=== PATIENT | male | born 1985 | race Caucasian/White ===

== ENCOUNTER 2019-12-08 23:51 | Emergency (ER) | payer BC, OTHER ==
[2019-12-09] MEDS ORDERED: morphine CARPU-JECT 4 MG/1 ML DISP.SYRIN IVPUSH ONE (00:01)
[2019-12-09] MEDS ORDERED: KETOROLAC TROMETHAMINE 30 MG/1 ML VIAL IVPUSH ONE (00:01)
[2019-12-09] MEDS ORDERED: SODIUM CHLORIDE 1,000 ML IV ONE (00:01)
--- NOTE | 2019-12-09 00:02 | PDOC ---
History of Present Illness - General Chief Complaint: Pain, Acute Stated Complaint: ABDOMINAL PAIN SHOOTING INTO TESTICLES Time Seen by Provider: 12/08/19 23:54 History Source: Patient Exam Limitations: No Limitations - History of Present Illness Initial Comments: 12/08/19 23:58 This is a 34-year-old male who comes in with acute onset of right flank pain radiating to his groin. Patient denies history of similar pain in the past. Patient denies history of kidney stones in the past past patient denies family history of kidney stones. Patient says pain is associated with some nausea but no vomiting. Patient denies fevers or chills. Allergies: as per nursing notes Past Medical History: none Social history: Lives with family. No smoking. No alcohol. No illicit drugs. Surgical history: None General: No fevers or chills, no weakness, no weight loss HEENT: No change in vision. No sore throat,. No ear pain CardioVascular: no chest discomfort. No shortness of breath Respiratory:No cough, or wheezing. Gastrointestinal: + nausea, no vomiting, diarrhea or constipation, No rectal bleeding Genitourinary: No dysuria, hematuria, or frequency Musculoskeletal: No joint or muscle pain or swelling : Right flank pain radiating to right groin Neurologic: No headache, vertigo, dizziness or loss of consciousness Psychiatric: nor depression Skin: No rashes or easy bruising Endocrine: no increased thirst or abnormal weight change Allergic: no skin or latex allergy All other systems reviewed and normal Exam: General: Well-nourished well-developed individual, no acute distress HEENT: Throat: Normal, tonsils normal, no erythema or exudate Neck: Supple, no meningeal signs, no lymphadenopathy Eyes::Pupils equal reactive and round, extraocular motion intact Chest: Nontender to palpation Cardiac: S1-S2 normal, regular rate and rhythm, no murmurs rubs or gallops Respiratory: Lungs clear to auscultation bilateral Abdomen: Soft, nondistended, Backslash flank: There is tenderness on palpation of the right flank and right lower quadrant no guarding or rebound bowel sounds are normal Extremities: Warm, dry, no cyanosis, clubbing, or edema Skin: No rashes Neuro: Alert and oriented x3, CN II - XII intact, nonfocal exam with normal strength, normal sensation, normal reflexes, normal gait, Psych: Normal mood and affect Assessment and plan: This is a 34-year-old male who presented complaining of right flank pain radiating to his right groin. Patient has some associated nausea. This most likely is renal stones. Work-up ordered including CBC, comp , UA, CAT scan patient given fluids antiemetics and pain medication. 12/09/19 01:23 Work-up was negative for any acute pathology including a CAT scan which was negative for any acute renal colic. Patient felt much better after medication and discharged home. Past History - Past Medical History Allergies/Adverse Reactions: Allergies Allergy/AdvReac Type Severity Reaction Status Date / Time No Known Allergies Allergy Verified 12/04/12 04:41 Home Medications: Ambulatory Orders Docusate Sodium [Colace] 100 mg PO BID #30 capsule 12/04/12 Doxycycline Hyclate [Vibratab -] 100 mg PO BID #20 tablet 12/04/12 No Home Medications 12/04/12 - Psycho Social/Smoking Cessation Hx Smoking Status: No Smoking History: Never smoked Number of Cigarettes Smoked Daily: 0 ED Treatment Course - LABORATORY CBC & Chemistry Diagram: 12/09/19 00:15 12/09/19 00:15 Discharge - Discharge Information Problems reviewed: Yes Clinical Impression/Diagnosis: Flank pain Condition: Stable Disposition: HOME - Admission No - Follow up/Referral - Patient Discharge Instructions Additional Instructions: Take Tylenol or Motrin if needed for any additional pain. Your work-up was negative for any kidney stones or concerning problems. Return to the emergency department immediately with ANY new, persistent or worsening symptoms. Continue any medications as previously prescribed by your physician. You should follow up with your primary doctor as soon as possible regarding today's emergency department visit. . Please make sure your doctor reviews the results of your emergency evaluation. Thank you for coming to the Emergency Department today for your care. It was a pleasure to see you today. Please note that your evaluation is INCOMPLETE until you follow-up with your doctor. - Post Discharge Activity
[2019-12-09] MEDS ORDERED: KETOROLAC TROMETHAMINE 30 MG/1 ML VIAL ONE (00:16)
[2019-12-09] MEDS ORDERED: morphine SULFATE 4 MG/ML VIAL ONE (00:17)
[2019-12-09 00:22] VITALS: BP 109/70; PULSE 90; TEMP 98.6; BMI 27.2
[2019-12-09 00:52] LABS: EOS % 1.4 % (0-4.5); HEMATOCRIT 48.1 % (35.4-49); HEMOGLOBIN 16.1 GM/dL (11.7-16.9); LYMPH % 24.8 % (8-40); MCH 27.1 pg (25.7-33.7); MCHC 33.4 g/dl (32.0-35.9); MEAN CELL VOLUME 81.2 fl (80-96); MEAN PLT VOLUME 8.5 fl (7.5-11.1); MONO % 10.8 % (3.8-10.2); PLATELET COUNT 236 K/MM3 (134-434); RBC 5.92 M/mm3 (4.00-5.60); RDW 14.2 % (11.9-15.9); WHITE BLOOD COUNT 7.9 K/mm3 (4.0-10.0)
[2019-12-09 01:13] LABS: BILIRUBIN,TOTAL 0.5 mg/dL (0.2-1); BLOOD UREA NITROGEN 9.5 mg/dL (7-18); CALCIUM 9.3 mg/dL (8.5-10.1); POTASSIUM 4.1 mmol/L (3.5-5.1); TOT PROT 7.5 g/dl (6.4-8.2)
--- NOTE | 2019-12-09 01:39 | PDOC ---
*Physical Exam - Vital Signs Last Vital Signs Temp Pulse Resp BP Pulse Ox 98.6 F 90 20 109/70 100 12/09/19 00:11 12/09/19 00:11 12/09/19 00:11 12/09/19 00:11 12/09/19 00:11 ED Treatment Course - LABORATORY CBC & Chemistry Diagram: 12/09/19 00:15 12/09/19 00:15 - ADDITIONAL ORDERS Additional order review: Laboratory Results 12/09/19 00:15 Sodium 137 Potassium 4.1 Chloride 104 Carbon Dioxide 21 Anion Gap 12 BUN 9.5 Creatinine 1.0 Est GFR (CKD-EPI)AfAm 114.91 Est GFR (CKD-EPI)NonAf 99.15 Random Glucose 99 Calcium 9.3 Total Bilirubin 0.5 AST 30 ALT 55 Alkaline Phosphatase 116 Total Protein 7.5 Albumin 4.0 12/09/19 00:15 RBC 5.92 H MCV 81.2 MCHC 33.4 RDW 14.2 MPV 8.5 Neutrophils % 62.0 D Lymphocytes % 24.8 D Monocytes % 10.8 H Eosinophils % 1.4 D Basophils % 1.0 - RADIOLOGY Radiology Studies Ordered: Category Date Time Status SPIRAL- RENAL-STONE CT [CT] Stat CT Scan 12/09/19 00:01 Taken SCROTUM AND CONTENTS US [US] Stat Ultrasound 12/09/19 01:36 Ordered - Medications Given in the ED: ED Medications Discontinued Medications Generic Name Dose Route Start Last Admin Trade Name Freq PRN Reason Stop Dose Admin Sodium Chloride 1,000 mls @ 1,000 mls/hr 12/09/19 00:01 12/09/19 00:22 Normal Saline - IV 12/09/19 01:00 1,000 mls/hr .Q1H ONE Administration Ketorolac Tromethamine 30 mg 12/09/19 00:01 12/09/19 00:23 Toradol Injection - IVPUSH 12/09/19 00:02 30 mg ONCE ONE Administration Morphine Sulfate 4 mg 12/09/19 00:01 12/09/19 00:50 Morphine Injection - IVPUSH 12/09/19 00:02 4 mg ONCE ONE Administration ED Progress Note - Progress Note Progress Note: 12/09/19 01:37 This is an addendum to the original chart this addendum is to document the exam exam testicles have normal lie, cremaster reflex is present bilateral There is some tenderness of the left testicle no masses are palpable ultrasound of the scrotum was obtained Discharge - Discharge Information Clinical Impression/Diagnosis: Flank pain Condition: Stable Disposition: HOME - Follow up/Referral - Patient Discharge Instructions Additional Instructions: Take Tylenol or Motrin if needed for any additional pain. Your work-up was negative for any kidney stones or concerning problems. Return to the emergency department immediately with ANY new, persistent or worsening symptoms. Continue any medications as previously prescribed by your physician. You should follow up with your primary doctor as soon as possible regarding today's emergency department visit. . Please make sure your doctor reviews the results of your emergency evaluation. Thank you for coming to the Emergency Department today for your care. It was a pleasure to see you today. Please note that your evaluation is INCOMPLETE until you follow-up with your doctor. - Post Discharge Activity
== END 2019-12-09 03:44 | disposition home or self-care (01) ==
LOC: FER 23:51
PROC: 3E0333Z Introduction of Anti-inflammatory into Peripheral Vein, Percutaneous Approach (ICD-10-PCS; principal; 2019-12-08)
PROC: 3E033NZ Introduction of Analgesics, Hypnotics, Sedatives into Peripheral Vein, Percutaneous Approach (ICD-10-PCS; 2019-12-08)
DX: R10.31 Right lower quadrant pain (principal)
CPT/HCPCS: 36415; 74176-TC; 76870-TC; 80053; 85025; 99282-25; J7030